=== PATIENT | female | born 1940 | race Caucasian/White ===

== ENCOUNTER → 2017-09-30 | Outpatient (CLI) | payer MEDICARE, BC, OTHER ==
[~2017-09-30] MED LIST: AMLO5TAB2 PO; CENTTAB PO; IBUP-232 PO; METO1TAB9 PO; PENT500C2 PO; PERC7.5T13 PO; PROM25TA5 PO; TAMS5CAP PO
[2017-09-30 10:33] LABS: AUTOMATED NEUTROPHIL # 6.1 TH/MM3 (1.8-7.7); BASOPHIL # 0.1 TH/MM3 (0-0.2); BASOPHIL % 0.9 % (0.0-2.0); EOSINOPHIL # 0.2 TH/MM3 (0-0.4); EOSINOPHIL % 2.1 % (0.0-4.0); HEMATOCRIT 37.4 % (35.0-46.0); HEMOGLOBIN 12.6 GM/DL (11.6-15.3); LYMPH % 22.9 % (9.0-44.0); LYMPHOCYTE # 2.1 TH/MM3 (1.0-4.8); MEAN CORPUSCULAR HEMOGLOBIN 29.6 PG (27.0-34.0); MEAN CORPUSCULAR HGB CONC 33.6 % (32.0-36.0); MEAN PLATELET VOLUME 7.1 FL (7.0-11.0); MONO % 6.7 % (0.0-8.0); MONOCYTE # 0.6 TH/MM3 (0-0.9); NEUT % 67.4 % (16.0-70.0); PLATELET COUNT 344 TH/MM3 (150-450); RED BLOOD COUNT 4.25 MIL/MM3 (4.00-5.30); WHITE BLOOD COUNT 9.1 TH/MM3 (4.0-11.0)
--- NOTE | 2017-10-01 23:30 | EKG ---
Date Performed: 09/30/2017 Time Performed: 12:22:49 PTAGE: 76 years EKG: Sinus rhythm NORMAL ECG NO PREVIOUS TRACING DOCTOR: Moi Pulliam Interpretating Date/Time 10/01/2017 23:29:28
== END ==
LOC: CLAB 10:12
PROVIDERS: ATTEND Surgery
DX: C50.919 Malignant neoplasm of unspecified site of unspecified female breast (principal)
CPT/HCPCS: 36415; 85025; 93005

== ENCOUNTER → 2017-11-25 | Day surgery (SDC) | payer MEDICARE, BC, OTHER ==
--- NOTE | 2017-11-20 09:29 | TH ---
cc: MADONNA EDWARDS M.D. DATE PRINCIPAL DIAGNOSIS Right breast cancer with positive lumpectomy margins. ATTENDING PHYSICIAN Madonna Edwards MD HISTORY OF PRESENT ILLNESS The patient is a 76-year-old female noted to have a clinical stage I right breast cancer. This was initially noted on a screening mammogram July 10, [address] [facility] where a central lower inner right breast mass was identified. A diagnostic right mammogram and ultrasound on July 16 confirmed a BI-RADS five 1 cm nodule at 3 o'clock 1 cm from the nipple. 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 The patient was only willing to undergo intraoperative radiation despite recommendations to consider whole breast radiation. She had a lumpectomy and sentinel node biopsy with intraoperative effusion on October 07. Final pathology demonstrated a 1 cm invasive papillary carcinoma with negative sentinel lymph nodes. The invasive component was less than 1 mm from the anterior margin and the medial and lateral margins were positive for ductal carcinoma in situ. She had at T1b, N0, stage IA tumor and I recommended re-excision of the margins and consideration of whole breast radiation. She was unwilling to consider whole breast radiation, but now presents for re-excision of the margins. MEDICAL PROBLEMS Include: 1. Hypertension 2. Crohn's disease 3. History of retinal detachment. PAST SURGERIES Included: 1. Repair of a retinal detachment in September 2016. 2. A small bowel resection for Crohn's disease in 2004. 3. Tonsillectomy SOCIAL HISTORY She is a 20 pack-year smoker and quit in October of 2016. CURRENT MEDICATIONS Included: 1. Pentasa 1000 mg b.i.d. 2. Metoprolol 50 mg b.i.d. 3. Amlodipine 10 mg daily 4. Multivitamin supplement ALLERGIES She has no drug allergies. FAMILY HISTORY Noncontributory REPRODUCTIVE HISTORY G2, P1, A1. Menarche age 15, first child age 27, menopause age 56. She does not take hormone replacement therapy. REVIEW OF SYSTEMS A 12-point review of systems was significant for mild shortness of breath and diarrhea related to her Crohn's disease which is generally controlled by diet and medication. PHYSICAL EXAMINATION She was 4 feet 10 and weighed 142 pounds with a BMI of 30. VITAL SIGNS: Blood pressure 146/85, temperature 98, heart rate 66, respirations 16. HEENT: Pupils are equal, round, reactive to light with a normal ocular range of motion. NECK: The neck was supple with no adenopathy or thyromegaly. CHEST: Clear. CARDIAC: Exam revealed a normal S1-S2 with no murmurs, rubs or gallops. BREASTS: Exam revealed fibrocystic changes and there was a healed scar in the 3 o'clock right breast as well as a healed axillary scar. ABDOMEN: Abdominal exam revealed a well-healed low midline scar with no masses or tenderness. The remainder of her exam was unremarkable. IMPRESSION Ms. Cobb had stage I invasive papillary carcinoma with a close anterior margin and medial and lateral margins positive for DCIS. She is unwilling to consider whole breast radiation or chemotherapy given her triple negative status, but she is willing to undergo re-excision of her lumpectomy margins and understands the risks and benefits of the procedure. MD VICKY Mora/BOOGIE /9:00 AM /9:12 AM
[~2017-11-25] MED LIST changes: +BUPIVACAINE HCL PF 0.5% 10 ML VIAL ONE; +HEPARIN SODIUM - IV 10,000 UNITS/10 ML VIAL ONE; +KETOROLAC TROMETHAMINE 30 MG/ML (IVP) VIAL IV PUSH ONE; +LACTATED RINGER'S 1000 ML INJ 1,000 ML ONE; +MIDAZOLAM HCL 2 MG/2 ML VIAL ONE; +ONDANSETRON HCL 4 MG/2 ML VIAL IV PUSH ONE; +PROPOFOL 200 MG/20 ML AMP IV ONE; +SODIUM CHLORIDE 0.9% 20 ML VIAL ONE; +ceFAZolin 2 GM PREMIX 50 ML ONE
--- NOTE | 2017-11-25 17:12 | TN ---
cc: MADONNA EDWARDS M.D. DATE OF SURGERY 11/25/2017 PRINCIPAL DIAGNOSIS Right breast cancer. PROCEDURE PERFORMED Re-excision of medial and lateral right breast lumpectomy margins and placement of right subclavian [id number]. SURGEON Madonna Edwards MD ANESTHESIA General via LMA device. 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 She had a previous lumpectomy and sentinel lymph node biopsy but the medial and lateral margins were involved with ductal carcinoma in situ. She refused consideration of whole breast radiation but did have intraoperative radiation as a boost. She has now elected to begin adjuvant chemotherapy and presents for port placement as well as re-excision of her margins. FINDINGS AT THE TIME OF SURGERY The right breast lumpectomy cavity was easily identified with a clean seroma and there was no evidence of infection. The left subclavian vein could not be percutaneously accessed but the right subclavian vein could be accessed without difficulty. PROCEDURE PERFORMED After informed consent was obtained and site verification was performed, the patient was brought to the major operating room where she underwent general anesthesia via LMA device. The right and left chest as well as right breast were prepped and draped in sterile fashion. The patient was placed in the Trendelenburg position and given a single dose of IV Ancef and sequential compression hose were placed. Multiple attempts to access the left subclavian vein percutaneously were unsuccessful with little to no blood return. The right subclavian vein was accessed percutaneously without difficulty in the infraclavicular position and a J-wire advanced easily into the central circulation where its position was confirmed with fluoroscopy. The Cook needle was removed and the skin and soft tissue around the wire were then anesthetized with 0.5% Marcaine plain. An incision was created around the wire and electrocautery dissection was used to develop the superior flap up to the level of the pectoral muscle. Inferiorly, a flap was developed at the level of the pectoralis muscle to create a pocket for the port reservoir. The catheter was measured out at 25 cm and cut off and it was flushed with heparinized saline. A peel-away sheath and introducer were then advanced over the wire using fluoroscopic guidance and the introducer and wire were then removed. The catheter advanced easily through the peel-away sheath which was then removed and the catheter was noted to be in good position in the superior vena cava at 17 cm. It was cut off at this point and secured to the port reservoir which was noted to flush and aspirate easily. Two 2-0 Prolene sutures were then used to secure the port reservoir to the pectoral muscle medially and laterally. The catheter was noted to lie in good position and good hemostasis was noted. The wound was closed using interrupted 3-0 Vicryl subcutaneous sutures and 4-0 Monocryl subcuticular suture. Attention was then turned to the right breast where a 3 o'clock periareolar lumpectomy scar was identified. This scar was anesthetized with 0.5% Marcaine plain and incised sharply. The lumpectomy cavity was immediately identified and the seroma was evacuated. The lateral margin was sharply demarcated and re-excised with a stitch on the new margin and this was sent in two separate pieces as a single specimen to the lab. The medial margin was sharply demarcated and reexcised with a stitch on the new margin and this was sent as a single specimen to the laboratory. Hemostasis was easily obtained with electrocautery and the lumpectomy scar was closed using interrupted 3-0 Vicryl subcutaneous sutures and a 4-0 Monocryl subcuticular suture. Steri-Strips and sterile dressings were applied to both wounds. The patient tolerated the procedure well with minimal blood loss and she was extubated in the operating room and brought to recovery room in good condition. MD VICKY Mora/ALEXA /4:00 PM /4:56 PM
== END | disposition home or self-care (01) ==
LOC: ESDC 11:49
PROVIDERS: ATTEND Surgery
DX: C50.311 Malignant neoplasm of lower-inner quadrant of right female breast (principal); Z45.2 Encounter for adjustment and management of vascular access device
CPT/HCPCS: 00400; 00532; 19301; 36561; 76000; 88307; C1788; J0690; J1644; J1885; J2250; J2405; J3010; J7120